=== PATIENT | male | born 1945 | race Caucasian/White ===

== ENCOUNTER 2022-10-14 10:17 | Emergency (ER) | payer OTHER ==
--- OUTSIDE RECORDS SUMMARY | 2022-10-14 10:19 | XMS REPORT | Continuity of Care Document ---
:1945 Author Organization [facility] t Address [address] [facility] [address] [place] [address] Care Team Providers Name Role Phone Je Zayas Attending Clinician Unavailable Problems This patient has no known problems. Allergies, Adverse Reactions, Alerts This patient has no known allergies or adverse reactions. Medications This patient has no known medications. Procedures This patient has no known procedures. Encounters Start End Encounter Admission Attending Care Care Encounter Source Date/Time Date/Time Type Type Clinicians Facility Department ID 2022-06-19 Outpatient Zayas, STLMLC STLC [id number] [place] 11:56:01 [place] [id number] [facility] 2022-06-12 Outpatient Zayas, STLMLC STLC [id number] Common 09:11:01 [place] [id number] [facility] 2021-03-29 Outpatient Zayas, STLMLC STLMLC [id number] Common 13:44:54 [place] [id number] [facility] 2021-03-29 Outpatient Zayas, STLMLC STLC [id number] Common 13:43:38 [place] [id number] [facility] 2021-03-29 Outpatient Zayas, STLMLC STLC [id number] Common 13:43:[address] [place] [address] Results This patient has no known results.
--- NOTE | 2022-10-14 10:30 | ER ---
Nurse's Notes [facility] Name: Herve Méndez Age: 76 yrs Sex: Male : 1945 Arrival Date: 10/14/2022 Time: 10:17 Bed Waiting Private MD: Je Zayas E Diagnosis: Strain of other muscles, fascia and tendons at shoulder and upper arm level, right arm Presentation: 10/14 10:27 Chief complaint: Patient states: R arm pain that has been ongoing x months. Pt was seen ss by Dr. Underwood 3 months ago and given an injection, but has since worn off. Also reports that pain has been worse since Saturday after changing a tire. Coronavirus screen: Client denies travel out of the [place] in the last 14 days. Ebola Screen: Patient denies exposure to infectious person. Patient denies travel to an Ebola-affected area in the 21 days before illness onset. Initial Sepsis Screen: Does the patient meet any 2 criteria? No. Patient's initial sepsis screen is negative. Does the patient have a suspected source of infection? No. Patient's initial sepsis screen is negative. Risk Assessment: Do you want to hurt yourself or someone else? Patient reports no desire to harm self or others. Onset of symptoms is unknown. 10:27 Method Of Arrival: Ambulatory ss 10:27 Acuity: STEPHANIE 4 ss Historical: - Allergies: 10:28 PENICILLINS; ss - PMHx: 10:28 Hypertension; ss - Immunization history:: Client reports receiving the 2nd dose of the Covid vaccine. - Social history:: Smoking status: Patient denies any tobacco usage or history of. Screenin:29 [facility] ED Fall Risk Assessment (Adult) History of falling in the last 3 months, ss including since admission No falls in past 3 months (0 pts). Abuse screen: Denies threats or abuse. Denies injuries from another. Nutritional screening: No deficits noted. Tuberculosis screening: Never had TB. Assessment: 10:29 General: Appears in no apparent distress. comfortable, Behavior is calm, cooperative, ss Denies fever, feeling ill. Pain: Complains of pain in R shoulder, R arm, R wrist/ hand Pain currently is 10 out of 10 on a pain scale. Quality of pain is described as aching, Pain began months ago Is continuous. Neuro: Level of Consciousness is awake, alert, obeys commands, Oriented to person, place, time, situation. Respiratory: Airway is patent Respiratory effort is even, unlabored, Respiratory pattern is regular, symmetrical. Derm: Skin is pink, warm \T\ dry. normal. Vital Signs: 10:27 BP 158 / 93; Pulse 91; Resp 16; Temp 97.7(TE); Pulse Ox 100% on R/A; ss ED Course: 10:19 Patient arrived in ED. mr 10:19 Je Zayas MD is Private Physician. mr 10:20 Jia Bey FNP-C is [facility]. kb 10:20 Kenneth Villafuerte MD is Attending Physician. kb 10:28 Triage completed. ss 10:28 Arm band placed on left wrist. ss 10:29 Patient has correct armband on for positive identification. ss 10:29 No provider procedures requiring assistance completed. Patient did not have IV access ss during this emergency room visit. Administered Medications: No medications were administered Medication: 10:29 VIS not applicable for this client. ss Outcome: 10:29 Discharge ordered by . kb 10:32 Discharged to home ambulatory. ss 10:32 Condition: good 10:32 Discharge instructions given to patient, Instructed on discharge instructions, follow up and referral plans. medication usage, Demonstrated understanding of instructions, follow-up care, medications, Prescriptions given X 2. 10:32 Patient left the ED. ss Signatures: Jia Bey FNP-C FNP-Alex Manuela LennonDiann, RN RN ss Corrections: (The following items were deleted from the chart) 10:30 10:29 Patient has correct armband on for positive identification. Bed in low position. ss ss
--- NOTE | 2022-10-14 10:30 | EDPHYS ---
Physician Documentation [facility] Name: Herve Méndez Age: 76 yrs Sex: Male : 1945 Arrival Date: 10/14/2022 Time: 10:17 Bed Waiting Private MD: Je Zayas E ED Physician Kenneth Villafuerte HPI: 10/14 17:00 This 76 yrs old Male presents to ER via Ambulatory with complaints of Arm Pain. kb 17:00 The patient or guardian complains of pain, that is chronic. The complaints affect the kb anterior aspect of right shoulder. Context: The problem was sustained at home. Onset: The symptoms/episode began/occurred 3 month(s) ago. Treatment prior to arrival includes: no previous treatment. Modifying factors: The symptoms are alleviated by nothing. the symptoms are aggravated by movement. Associated signs and symptoms: Pertinent positives: pain, Pertinent negatives: decreased range of motion, swelling. Severity of symptoms: At their worst the symptoms were moderate, in the emergency department the symptoms are unchanged. The patient has experienced similar episodes in the past. The patient has not recently seen a physician. Pt reports right shoulder pain for months. States he was seen by Dr Underwood for this pain 3 months ago and given an injection that helped, but it has worn off. States he was lifting a tire yesterday and aggravated it. Full ROM of shoulder, pulses intact. . Historical: - Allergies: 10:28 PENICILLINS; ss - PMHx: 10:28 Hypertension; ss - Immunization history:: Client reports receiving the 2nd dose of the Covid vaccine. - Social history:: Smoking status: Patient denies any tobacco usage or history of. ROS: 17:00 Constitutional: Negative for fever, chills, and weight loss. kb 17:00 MS/extremity: Positive for pain, of the anterior aspect of right shoulder. 17:00 All other systems are negative. Exam: 17:00 Constitutional: This is a well developed, well nourished patient who is awake, alert, kb and in no acute distress. Head/Face: Normocephalic, atraumatic. ENT: Moist Mucous membranes Cardiovascular: Regular rate and rhythm with a normal S1 and S2. No gallops, murmurs, or rubs. No pulse deficits. Respiratory: Respirations even and unlabored. No increased work of breathing. Talking in full sentences Abdomen/GI: Soft, non-tender. No distention Skin: Warm, dry with normal turgor. Normal color. Neuro: Awake and alert, GCS 15, oriented to person, place, time, and situation. Moves all extremities. Normal gait. 17:00 Musculoskeletal/extremity: Extremities: grossly normal except: noted in the anterior aspect of right shoulder: pain, ROM: intact in all extremities, Circulation is intact in all extremities. Sensation intact. Vital Signs: 10:27 BP 158 / 93; Pulse 91; Resp 16; Temp 97.7(TE); Pulse Ox 100% on R/A; ss MDM: 10:21 Patient medically screened. kb 17:01 Differential diagnosis: dislocation, closed fracture, contusion, tendonitis. Data kb reviewed: vital signs, nurses notes. Test considered but Not performed: X-ray: x-ray considered, but pt has no bony tenderness, full rom and no history of trauma to shoulder. Counseling: I had a detailed discussion with the patient and/or guardian regarding: the historical points, exam findings, and any diagnostic results supporting the discharge/admit diagnosis, the need for outpatient follow up, a orthopedic surgeon, to return to the emergency department if symptoms worsen or persist or if there are any questions or concerns that arise at home. Administered Medications: No medications were administered Disposition Summary: 10/14/22 10:29 Discharge Ordered Location: Home kb Condition: Stable kb Diagnosis - Strain of other muscles, fascia and tendons at shoulder and upper arm level, right kb arm Followup: kb - With: Emergency Department - When: As needed - Reason: Worsening of condition Followup: kb - With: Private Physician - When: 2 - 3 days - Reason: Recheck today's complaints, Continuance of care, Re-evaluation by your physician Discharge Instructions: - Discharge Summary Sheet kb - Shoulder Pain, [id number] kb Forms: - Medication Reconciliation Form kb - Thank You Letter kb - Antibiotic Education kb - Prescription Opioid Use kb - Patient Portal Instructions kb - Leadership Thank You Letter kb Prescriptions: - Medrol ([place]) 4 mg Oral Tablets, Dose Pack - take 1 tablet by ORAL route as directed - follow package instructions; 1 kb packet; Refills: 0, Product Selection Permitted - orphenadrine citrate 100 mg Oral Tablet Sustained Release - take 1 tablet by ORAL route 2 times per day As needed; 20 tablet; Refills: 0, kb Product Selection Permitted Signatures: Jia Bey, CLINICAL ANALYST-C CLINICAL ANALYST-Ckb Diann Barfield, RN RN ss
[2022-10-14 10:37] VITALS: BP 158/93; TEMP 97.7; O2SAT 100
== END 2022-10-14 10:32 | disposition home or self-care (01) ==
LOC: ER 10:17
DX: S46.811A Strain of other muscles, fascia and tendons at shoulder and upper arm level, right arm, initial encounter (principal); Z88.0 Allergy status to penicillin
CPT/HCPCS: 99283

== ENCOUNTER 2023-01-04 06:31 | Day surgery (SDC) | payer OTHER ==
[2022-12-31 10:47] LABS: Absolute Lymphocytes (CBC) 2.1 K/uL (0.7-4.9); Hematocrit 42.3 % (39.6-49.0); Lymphocytes % 21.2 % (15.3-44.8); MCV 87.5 fL (80-100); MPV 7.6 fL (7.6-11.3); Platelets 270 thou/uL (152-406); RBC Red Blood Cell Count 4.83 M/uL (4.33-5.43)
[2022-12-31 10:53] LABS: Protime INR 1.03
[2022-12-31 11:01] LABS: Potassium 4.4 mEq/L (3.5-5.1)
--- NOTE | 2022-12-31 11:09 | RAD REPORT ---
EXAM DESCRIPTION: Darlene Gutierrez (2 Views)12/31/2022 10:57 am CLINICAL HISTORY: Preop for shoulder surgery COMPARISON: 2019 FINDINGS: Bilateral calcified pleural plaques The lungs appear clear of acute infiltrate. The heart is normal size IMPRESSION: No acute abnormalities displayed
--- NOTE | 2023-01-01 07:51 | EKG ---
Test Date: 2022-12-31 Test Time: 10:38:00 Angle Dozer Operator: DESIREE MEASUREMENT RESULTS: Intervals: Rate: 64 OH: 132 QRSD: 82 QT: 376 QTc: 387 [place]: P: 73 OH: 132 QRS: 70 T: 57 INTERPRETIVE STATEMENTS: Normal sinus rhythm with sinus arrhythmia Normal ECG Compared to ECG 12/12/2015 20:56:07 No significant changes Electronically Signed On 01-01-23 07:49:49 CDT by Aris Paredes
[2023-01-04] MEDS ORDERED: CEFAZOLIN SODIUM 1 GM/VIAL ONE (06:59)
[2023-01-04] MEDS: Ringers Lactate 1,000 ML IV ONE ×2 (07:00→07:55)
[2023-01-04] MEDS ORDERED: FENTANYL CITR 100 MCG/2 ML ONE (07:15)
[2023-01-04] MEDS ORDERED: propofoL 200 MG/20 ML VIAL IV ONE (07:15)
[2023-01-04] MEDS ORDERED: MIDAZOLAM HCL 2 MG/2 ML INJ ONE (07:15)
[2023-01-04] MEDS ORDERED: EPINEPHRINE/PF 1 MG/ML AMP ONE ×2 (07:15→07:43)
[2023-01-04] MEDS ORDERED: dexAMETHasone 10 MG/ML VIAL ONE ×2 (07:15→10:07)
[2023-01-04] MEDS ORDERED: LIDOCAINE 1% MPF 5 ML VIAL ONE (07:15)
[2023-01-04] MEDS ORDERED: ROCURONIUM 50 MG/5 ML VIAL IV ONE (08:18)
[2023-01-04] MEDS ORDERED: EPHEDRINE SULF 50 MG/ML VIAL ONE ×2 (08:34→08:58)
[2023-01-04] MEDS ORDERED: NS 0.9% VIAL 10 ML ONE (08:58)
[2023-01-04] MEDS ORDERED: Phenylephrine HCl 10 MG/ML 1 ML VIAL ONE (09:00)
[2023-01-04] MEDS ORDERED: Ringers Lactate 1,000 ML IV ONE (09:28)
[2023-01-04] MEDS ORDERED: GLYCOPYRROLATE 0.2 MG/ML SYR ONE (09:52)
[2023-01-04] MEDS ORDERED: NEOSTIGMINE 1 MG/ML -10 ML VIAL ONE (09:53)
[2023-01-04] MEDS ORDERED: KETOROLAC 30 MG/ML INJ ONE (10:07)
[2023-01-04] MEDS ORDERED: ONDANSETRON 4 MG/2 ML VIAL ONE (10:14)
--- NOTE | 2023-01-04 10:15 | P.BOP ---
Preoperative diagnosis: right shoulder rotator cuff tear, impingement syndrome Postoperative diagnosis: same, right shoulder SLAP tear Primary procedure: right shoulder arthroscopic rotator cuff repair Secondary procedure: right shoulder arthroscopic SLAP and biceps tendon debridement Other procedure(s): right shoulder arthroscopic subacromial decompression Mold Clamper: NONE,NONE Estimated blood loss: 5 cc Specimen: none Findings: see dictation Anesthesia: General Complications: None Implants: 1- 5.5 mm arthrex corkscrew, 1- 4.75 mm Arthrex swivelock Fluids & blood products: per anesthesia record Transferred to: Recovery Room Condition: Good
--- NOTE | 2023-01-04 10:38 | RAD REPORT ---
EXAM DESCRIPTION: RAD - Shoulder 1 View - 01/04/2023 10:30 am CLINICAL HISTORY: s/p RCR, SLAP debridement, Bicep debridement COMPARISON: Shoulder Left Wo Cont dated 11/29/2020; Chest Pa And Lat (2 Views) dated 12/31/2022 FINDINGS/IMPRESSION: No acute fracture. No malalignment. Mild right AC joint degenerative changes wi th subacromial spur. Pleural plaques.
[2023-01-04 13:46] VITALS: BP 11/65; TEMP 97; O2SAT 98
== END 2023-01-04 12:24 | disposition home or self-care (01) ==
LOC: OR 06:31
PROVIDERS: ATTEND Orthopaedic Surgery Sports Medicine
PROC: 0RNJ4ZZ Release Right Shoulder Joint, Percutaneous Endoscopic Approach (ICD-10-PCS; 2023-01-04)
PROC: 0LB14ZZ Excision of Right Shoulder Tendon, Percutaneous Endoscopic Approach (ICD-10-PCS; principal; 2023-01-04 08:00)
DX: M75.101 Unspecified rotator cuff tear or rupture of right shoulder, not specified as traumatic (principal); M25.811 Other specified joint disorders, right shoulder; S46.211A Strain of muscle, fascia and tendon of other parts of biceps, right arm, initial encounter; S43.431A Superior glenoid labrum lesion of right shoulder, initial encounter
CPT/HCPCS: 29827; 29826; 29822; 93005; 85025; 80048; 36415; 85610; 85730; 71046; 73020; A4216; J2704; J2710; J0171 ×2; J2001; J2371; J3010; J1100 ×2; J2405; J7120 ×2; J0690; J2250